=== PATIENT | female | born 1965 | race Caucasian/White ===

== ENCOUNTER 2020-05-09 09:02 | Outpatient (CLI) | payer OTHER ==
--- NOTE | 2020-05-09 09:59 | Consultation ---
DATE OF CONSULTATION: 05/09/2020 CHIEF COMPLAINT: 1. GERD. 2. Abdominal pain. HISTORY OF PRESENT ILLNESS: This is a 54-year-old female, apparently had severe nausea, vomiting, abdominal pain, was admitted to [facility]. According to her, she had a ultrasound, CT, endoscopy. She was diagnosed with hiatal hernia, esophagitis, gastritis, was given Protonix twice a day. She took it for while and she was doing fine but as soon as she stopped, she had some recurrence of symptoms but not as severe. PAST MEDICAL HISTORY: 1. Hypothyroidism. 2. GERD. 3. Esophagitis. PAST SURGICAL HISTORY: 1. x4. 2. Partial hysterectomy. 3. Cholecystectomy. MEDICATIONS: Please see medication reconciliation list. FAMILY HISTORY: Mother had breast cancer at age 80. SOCIAL HISTORY: The patient denies any tobacco, alcohol, or drug use. ALLERGIES: No known allergies. REVIEW OF SYSTEMS: A 10-point review of systems was performed and pertinent positives in the history of HPI. Last colonoscopy about 4 years ago. PHYSICAL EXAMINATION: VITAL SIGNS: Temperature 97.8, blood pressure 116/70, pulse 64, respirations 20. HEENT: Normocephalic and atraumatic. Sclerae anicteric. NECK: Supple. No evidence of obvious lymphadenopathy. CARDIOVASCULAR: Regular rate and rhythm. Plus S1-S2. LUNGS: Clear to auscultation bilaterally. ABDOMEN: Positive bowel sounds. Soft and nontender. No rebound. No guarding No peritoneal sign. EXTREMITIES: No cyanosis, no clubbing, no edema. ASSESSMENT AND PLAN: This is a 54-year-old female with recurrent GERD symptoms, off PPI. The patient was given Protonix twice a day so we resumed Protonix about once a day 40 mg. The patient was also given Align for SIBO symptoms. The patient was told to come back in 6 months for after treatment. We will repeat endoscopy. [place] M.D. DR: Roopa JOB#: [id number] CC:
[2020-05-09] MEDS ORDERED: SYNTHROID88 MCG ORAL (14:37)
[2020-05-09] MEDS ORDERED: PANTOPRAZOLE SO40 MG ORAL (14:37)
[2020-05-09] MEDS ORDERED: FLUTICASONE PRO16 G1 NASAL (14:37)
== END 2020-05-09 11:02 | disposition home or self-care (01) ==
LOC: PAN 09:02
DX: K21.9 Gastro-esophageal reflux disease without esophagitis (principal); R10.9 Unspecified abdominal pain; E03.9 Hypothyroidism, unspecified; Z90.710 Acquired absence of both cervix and uterus; Z90.49 Acquired absence of other specified parts of digestive tract
CPT/HCPCS: 99203